=== PATIENT | male | born 1955 | race Caucasian/White ===

== ENCOUNTER 2020-09-28 12:57 | Outpatient (CLI) | payer BC, SELFPAY | END 2020-09-28 12:58 | disposition home or self-care (01) | LOC: ANHAUDIO 12:58 | PROVIDERS: PCP Family Medicine; Visit Provider Otolaryngology | DX: H93.13 Tinnitus, bilateral (principal); H91.93 Unspecified hearing loss, bilateral | CPT/HCPCS: 92557; 92567 ==

== ENCOUNTER 2020-09-29 09:54 | Outpatient (RCR) | payer BC, SELFPAY ==
--- NOTE | 2020-09-29 11:24 | PTOPEVAL ---
PHYSICAL THERAPY EVALUATION Thank you for referring [place] to [facility].? Jose was evaluated for the dx of BPPV. The patient will be called in 1 week to determine if further PT is needed. Will DC PT if pt is I with HEP and w/o symptoms.. Please review, sign, date and return this plan of care SUELLEN. I agree with and certify that the following plan of care is medically necessary. Referring Physician Date Attending Provider: Deyvi Carranza MD *PT Outpatient Evaluation Start: 09/29/20 10:07 Freq: Status: Active Protocol: Document 09/29/20 10:15 MLV (Rec: 09/29/20 11:09 [facility] [id number]) Therapy Assessment Status Assessment Status Assessment Status Evaluation Evaluation Information Problem Diagnosis vertigo-possible BPPV Onset 4 months ago Cause none Additional Evaluation Detail The patient reports having a start of tinnitis in May this year that remains. The patient then had a severe bout of dizziness that began in the middle of the night w/o movement provocation. This began in August and has decreased over time now to a point where he is currently asymptomatic. The patient wants to assure no remaining symptoms and hopes to prevent recurring events. Diagnostic Tests Other Tests For This Problem Yes: hearing test; clear Pain Assessment Timing of Pain Assessment Timing of Pain Assessment Assessment Self Report Self Report Pain Level 0 Pain Score Pain Score 0: Self Report Cervical and Lumbar ROM Cervical ROM Reason Not Measured WFL/Left,WFL/Right Upper Extremity Range of Motion General Upper Extremity Range of Motion Reason Not Measured WFL/Left,WFL/Right Lower Extremity Muscle Strength Testing General Lower Extremity Strength Reason Not Measured WFL/Left,WFL/Right Upper Extremity Muscle Strength Testing General Upper Extremity Strength Reason Not Measured WFL/Left,WFL/Right Vestibular Evaluation Vestibular Testing Smooth Pursuits Normal Saccades WNL Sitting Head Thrust WNL Gaze Stabilization with Fixation WNL Gaze Stabilization without Fixation WNL Head Shake without Fixation WNL Head Shake with Fixation WNL [place]-Hallpike Left Vertigo but no Nystagmus Time Length of Nystagmus to the Left ( 10 seconds) Latony[place]-Hallpike Right WNL Horizontal Roll Test in Supine
--- NOTE | 2020-10-13 09:44 | PCPTNOTE ---
10/13/20: Called pt to check on HEP and progress. The patient reports doing his exercises for a couple days regularly, then did them sporadically due to being less symptomatic. The patient feels he does not need further PT, will continue on his own. DC PT.
--- NOTE | 2020-10-13 09:50 | PCPTNOTE ---
PHYSICAL THERAPY DISCHARGE Attending Provider: Deyvi Carranza MD Patient:[place] Date of :1955 Patient has not returned for any further treatments since 09/29/2020, therefore he will be discharged at this time. Patient?s initial visit was on 09/29/2020 10:00 and he had a total of 1 visit. Jose feels he has what he needs to work on his own and has no further skilled PT needs-per phone conversation on 10/13/20. The goals have been met. Thank you for referring this patient to [facility]. Please review, sign, date and return this discharge summary SUELLEN. I have been updated about the patient's current status and I agree with discharge from the above service at this time. Referring Physician Date
== END 2020-10-20 15:32 | disposition home or self-care (01) ==
LOC: ANHPT 09:54
PROVIDERS: PCP Family Medicine; Visit Provider Otolaryngology
DX: H81.10 Benign paroxysmal vertigo, unspecified ear (principal); H81.20 Vestibular neuronitis, unspecified ear
CPT/HCPCS: 97110; 97161

== ENCOUNTER 2021-01-25 12:29 | Outpatient (CLI) | payer BC, SELFPAY ==
--- NOTE | ~2021-01-25 | DEXA_ITS ---
Bone Density Report Name: [place] Age: 65 Sex: Male Ethnicity: White Date of : 1955 Indication: osteopenia; monitoring treatment; prior fracture; postmenopausal Referring Provider: JEAN POE Study: Bone densitometry was performed. Exam Date: January 25, 2021 Accession number: [id number] Bone Density: Region BMD T-score Z-score Classification AP Spine (L1-L4) 0.997 -0.9 -0.1 Normal Femoral Neck (Left) 0.719 -1.5 -0.5 Osteopenia Total Hip (Left) 0.915 -0.8 -0.3 Normal World Health Organization criteria for BMD impression classify patients as: Normal (T-score at or above -1.0), Osteopenia (T-score between -1.0 and -2.5), or Osteoporosis (T-score at or below -2.5). 10-year Fracture Risk: FRAX not reported because: Prior hip or vertebral fracture Treated for osteoporosis Previous Exams: Region Exam Age BMD T-score BMD Change BMD Change Date g/cm2 vs Baseline vs Previous AP Spine(L1-L4) 01/25/2021 65 0.997 -0.9 0.029(3.0%)# 0.069(7.5%)* 10/27/2013 58 0.927 -1.5 -0.040(-4.2%)# 0.024(2.7%)# 10/23/2011 56 0.903 -1.7 -0.065(-6.7%)# -0.065(-6.7%)# 10/19/2009 54 0.968 -1.1 Total Hip(Left) 01/25/2021 65 0.915 -0.8 0.076(9.1%)# 0.035(4.0%)* 10/27/2013 58 0.880 -1.0 0.041(4.8%)# 0.020(2.4%)# 10/23/2011 56 0.860 -1.1 0.020(2.4%)# 0.020(2.4%)# 10/19/2009 54 0.839 -1.3 *Denotes significance at 95% confidence level, LSC for AP Spine = 0.022 g/cm2, LSC for Total Hip = 0.027 g/cm2 Clinical Information Provided by Patient: Have had a previous hip or vertebral fracture Has had a low trauma fracture Is being treated for osteoporosis Has used the following medications: Actonel (i.e. risedronate), Fosamax (i.e. alendronate), Vitamin D, Calcium Patient maximum height was 71.5 No regular weight bearing exercise Does not regularly consume dairy products Drinks caffeinated beverages Impression: The patient has low bone mass, based on the Left Femoral Neck T-score. The patient has risk factors, including: previous fracture. No significant bone loss was observed. Discussion: PATIENT UNDER TREATMENT WITH NO SIGNIFICANT BMD LOSS SINCE LAST EXAM. In an untreated patient, BMD typically declines with age. A lack of decline or gain is usually a sign that treatment is efficacious and fracture risk is reduced. It is important to ask patients whether they are taking their medications and to encourage continued and appropriate compliance with their osteoporosis therapies to reduce fracture risk.
== END 2021-01-25 12:30 | disposition home or self-care (01) ==
LOC: ANHIMG 12:32
PROVIDERS: PCP Family Medicine; Visit Provider Family Medicine
DX: M81.0 Age-related osteoporosis without current pathological fracture (principal); M85.852 Other specified disorders of bone density and structure, left thigh
CPT/HCPCS: 77080

== ENCOUNTER → 2021-11-01 16:14 | Outpatient (CLI) | payer MEDICARE, SELFPAY ==
--- NOTE | ~2021-11-01 | XR_ITS ---
EXAMINATION: XR chest 2V 11/01/2021 16:44 INDICATION: Bronchitis with bronchospasm PROCEDURE: 2 view chest COMPARISON: 02/06/2008 FINDINGS: The lungs are clear. The cardiomediastinal silhouette is within normal limits. There are no pleural effusions. There is no pneumothorax suspected. The lungs are hyperinflated which is cons istent with, but not diagnostic of chronic obstructive pulmonary disease. IMPRESSION: 1: NO ACUTE CARDIOPULMONARY DISEASE. Reviewed, dictated and finalized at location A.
== END ==
PROVIDERS: PCP Family Medicine; Visit Provider Physician Assistant
DX: J20.9 Acute bronchitis, unspecified (principal)
CPT/HCPCS: 71046

== ENCOUNTER 2023-04-15 08:46 | Emergency (ER) | payer MEDICARE, SELFPAY ==
--- NOTE | ~2023-04-15 | CT_ITS ---
EXAMINATION: CTA chest PE protocol DATE: 04/15/2023 10:08 INDICATION: Tachycardia and shortness of breath, COVID 19 positive TECHNIQUE: Computed tomography angiography (CTA) of the chest was performed with 100 mL Omnipaque-350 intravenous contrast timed to evaluate the pulmonary arteries. Coronal maximum intensity projection 3D-reconstructions were created by the technologist. The dose-length product (DLP) was 731.59 mGy-cm. Automated exposure control and iterative reconstruction technique were employed. COMPARISON: None. FINDINGS: There are pulmonary emboli in all lobes of the lungs, at the origins of the right upper, mi ddle, and lower lobe pulmonary arteries, and origin of the left upper lobe pulmonary artery, and and left main pulmonary artery. There is straightening of the interventricular septum. There are patchy l eft perihilar airspace opacities. No pleural effusion or pneumothorax. No pathologically enlarged tho racic lymph nodes are identified. The heart size is normal. There is moderate thoracic spondylosis. IMPRESSION: 1. Bilateral central pulmonary emboli with possible right heart strain. These findings were discussed with Dr. Amish Mistry MD in the Emergency Department at 1041 hours on 04/15/2023. 2. Patchy left perihilar airspace opacities, likely pneumonia. Reviewed, dictated and finalized at location F. SUPERVISOR IMPRESSION: 1. Bilateral central pulmonary emboli with possible right heart strain. These f indings were discussed with Dr. Amish Mistry MD in the Emergency Departmen t at 1041 hours on 04/15/2023. 2. Patchy left perihilar airspace opacities, likely pneumonia.
[2023-04-15 08:52] VITALS: BP 132/105; PULSE 126; RESP 23; TEMP 36.3; O2SAT 100
[2023-04-15 08:58] VITALS: PULSE 125
--- NOTE | 2023-04-15 08:58 | ECG_ITS ---
Measurements Intervals [place] Rate: 124 P: 31 MN: 161 QRS: 35 QRSD: 94 T: 48 QT: 410 QTc: 589 Interpretive Statements SINUS TACHYCARDIA WITH VENTRICULAR PREMATURE COMPLEXES ANTERIOR MYOCARDIAL INFARCTION , AGE INDETERMINATE POSSIBLE INFERIOR MYOCARDIAL INFARCTION , PROBABLY OLD Electronically Signed On 04-15-2023 11:41:26 WATER QUALITY ANALYST by Esdras Ram M.D.
--- NOTE | 2023-04-15 08:59 | ED.GENADULT ---
HPI - General Adult General Chief complaint: Shortness of Breath/Dyspnea Stated complaint: shortness of breath Time Seen by Provider: 04/15/23 08:49 History of Present Illness HPI narrative: 67-year-old male with history of hypertension high cholesterol. Patient began developing COVID symptoms on the was diagnosed with COVID on the and patient just completed his paxlovid. Patient states he began developing some shortness of breath last night and had a heart rate up to 115 at home. Patient denies any prior history of [place] CVA PE DVT. Patient denies any associated chest pain with this. Related Data Home Medications Medication Instructions Recorded Confirmed atorvastatin 20 mg tablet 20 mg PO DAILY 09/08/20 11/23/22 sertraline 50 mg tablet 50 mg PO DAILY 09/08/20 11/23/22 irbesartan 300 1 tablet PO DAILY 05/25/22 11/23/22 mg-hydrochlorothiazide 12.5 mg tablet psyllium husk 2.6 gram/4.1 gram 2 tbsp PO DAILY 11/23/22 11/23/22 oral powder Allergies Allergy/AdvReac Type Severity Reaction Status Date / Time No Known Allergies Allergy Mild Verified 04/15/23 08:56 Review of Systems Review of Systems: All systems reviewed & are unremarkable except as noted in HPI and below PMFSH Past Medical History Medical History (Updated 04/15/23 @ 14:22 by Amish Mistry MD) BPPV (benign paroxysmal positional vertigo) Essential (primary) hypertension Hearing loss, bilateral Hyperlipidemia Major depressive disorder, recurrent, 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 Family History Family History Grandparent Family history of Alzheimer's disease Mother Family history of pancreatic cancer Hypertension Sibling Family history of malignant neoplasm of urinary bladder Father Alcoholism Asthma Social History Social History Smoking status: Former smoker Tobacco type: cigarettes Second hand tobacco smoke exposure: No Alcohol intake: current Drinks per week: 3 Substance use: current Substance use type: marijuana Last use: 05/25/22 Lack of Transportation: No Lack of Food: Never True Current Housing: I Have Housing Concerned About Future Housing: No Difficulty Paying Gas/Electric Bills: No Difficulty Paying for Meds: No Currently Unemployed: No Difficulty w/ Childcare or Family Care: No Living arrangements: with family Occupation/Education: retired Gender identity (if verbalized by the patient): Male Sexual Orientation (if Verbalized by the Patient): Straight or Heterosexual Spiritual care concerns: No Exam Narrative: APPEARANCE: Well appearing, no pain, no distress, well-nourished. HEAD: normocephalic, atraumatic. EYES: PERRLA/EOMI, conjunctivae clear. NOSE: Normal no drainage EARS:TMS clear with good light reflex. THROAT: Pharynx clear, no exudate. NECK: Supple. No adenopathy, no masses. RESPIRATORY: Airway patent, respirations nonlabored. Clear to auscultation bilaterally, no rales, rhonchi, wheezing. CARDIOVASCULAR: Tachycardia ABDOMINAL: Soft, nontender, nondistended, normal bowel sounds MUSCULOSKELETAL: Moves all extremities. Strength/ROM intact, No edema, No calf tenderness. NEURO: Alert. Cranial nerves II through XII intact. Grossly SKIN: Warm, dry. Normal Color Course Course Emergency Course: 67-year-old male present to the emergency department for evaluation for shortness of breath. Patient is afebrile but does have a leukocytosis of 15.7 a stable hemoglobin of 16.4. No acute abnormalities on the patient's CMP patient's lactic acid was mildly elevated. Patient did have a bump in his troponin 2.390 with no evidence acute STEMI on the patient's EKG. Patient did test positive for COVID was negative for influenza a and RSV. CT scan was ordered to evaluate for pulmonary embolism and this did show multiple bilateral pulmonar
[2023-04-15] MEDS: SODIUM CHLORIDE 0.9% IV 1,000 ML 999 ML IV CONT (09:07)
[2023-04-15 09:15] LABS: Basophils Absolute Auto 0.1 K/mm3 (0.0-0.1); Basophils Percent Auto 0.5 % (0.2-1.2); Eosinophils Absolute Auto 0.2 K/mm3 (0-0.3); Eosinophils Percent Auto 1.1 % (0-4.4); Hematocrit 51.6 % (42.0-52.0); Hemoglobin 16.4 g/dL (14.0-18.0); Immature Granulocyte Absolute 0.06 K/mm3 (0.00-0.031); Immature Granulocyte Percent A 0.4 % (0-0.5); Lymphocytes Absolute Auto 2.89 K/mm3 (0.9-3.2); Lymphocytes Percent Auto 18.5 % (18.3-44.2); Mean Corpuscular HGB Conc 31.8 g/dl (32-36); Mean Corpuscular Hemoglobin 28.7 pg (26-34); Mean Corpuscular Volume 90.4 fl (80-100); Mean Platelet Volume 9.5 fl (7.4-10.4); Monocytes Absolute Auto 1.4 K/mm3 (0.1-0.6); Neutrophils Absolute Auto 11.1 K/mm3 (1.3-6.7); Neutrophils Percent Auto 70.5 % (45.5-73.1); Platelet Count Result 248 k/mm3 (150-375); Red Blood Count 5.71 M/mm3 (4.6-6.20); Red Cell Distribution Width 12.9 % (11.5-14.5); White Blood Count 15.7 K/mm3 (4.5-10.0)
[2023-04-15 09:27] LABS: Partial Thromboplastin Time 30.8 SECONDS (22.3-36.8)
[2023-04-15 09:30] LABS: Alanine Aminotransferase 21 U/L (6-50); Albumin Level 4.6 g/dL (3.5-5.1); Alkaline Phosphatase 116 U/L (38-126); Anion Gap 9 mmol/L (8-16); Aspartate Amino Transferase 28 U/L (17-59); Blood Urea Nitrogen 14 mg/dL (9-20); Calcium 10.6 mg/dL (8.4-10.2); Carbon Dioxide 27 mmol/L (22-30); Chloride 102 mmol/L (98-107); Estimated CRCL calculation 72 ml/min; Estimated Glomerular Filt Rate > 60; Glucose 133 mg/dL (65-110); Lactic Acid Reflex 2.2 mmol/L (0.7-2.0); Sodium 138 mmol/L (137-145)
[2023-04-15 09:41] LABS: Magnesium 2.2 mg/dL (1.6-2.3)
--- NOTE | 2023-04-15 09:54 | ECG_ITS ---
Measurements Intervals [place] Rate: 118 P: 28 PA: 173 QRS: 21 QRSD: 86 T: 37 QT: 435 QTc: 610 Interpretive Statements SINUS TACHYCARDIA LOW QRS VOLTAGE IN PRECORDIAL LEADS POSSIBLE ANTERIOR MYOCARDIAL INFARCTION , OF INDETERMINATE AGE Electronically Signed On 04-15-2023 11:41:52 POTATO SEED CUTTER by Esdras Ram M.D.
[2023-04-15 10:30] LABS: Influenza A QL RT-PCR Negative (Negative); Influenza B QL RT-PCR Negative (Negative); RSV RNA, RT-PCR Negative (Negative); SARS-CoV-2 RNA PCR Positive (Negative)
[2023-04-15 11:07] LABS: Add Urine Microscopic? NO; Appearance Urine Clear (Clear); Bilirubin Urine Negative (Negative); Blood Urine Negative (Negative); Color Urine Yellow (Yellow); Glucose Urine UA Negative (Negative); Ketones Urine Negative (Negative); Leukocyte Esterase Ur Negative LEU/UL (Negative); Nitrate Urine Negative (Negative); Protein Urine Negative (Negative); Specific Grav Ur 1.062 (1.001-1.035); Urobilinogen Urine 0.2 mg/dL (<2.0); pH Urine 7.5 (5.0-9.0)
[2023-04-15] MEDS: HEPARIN SOD/D5W 100 UNITS/ML 25,000 UNITS/250 ML BAG 15 UNITS IV CONT (11:12)
[2023-04-15] MEDS: HEPARIN SODIUM 5,000 UNITS/ML VIAL 7000 UNITS IV PUSH (11:12)
[2023-04-15 11:16] VITALS: BP 119/95; PULSE 115; RESP 16; O2SAT 99
[2023-04-15 11:17] VITALS: O2SAT 99
[2023-04-15 11:50] VITALS: BP 112/81; PULSE 117; RESP 18; O2SAT 98
[2023-04-15 12:13] LABS: Reflex Lactic Acid Yes or No Add Lactic
== END 2023-04-15 13:00 | disposition short-term general hospital (02) ==
LOC: ANHED 09:17
PROVIDERS: Emergency Provider Emergency Medicine; PCP Family Medicine
DX: I26.99 Other pulmonary embolism without acute cor pulmonale (principal); I10 Essential (primary) hypertension; E78.5 Hyperlipidemia, unspecified; Z87.891 Personal history of nicotine dependence; Z20.822 Contact with and (suspected) exposure to COVID-19
CPT/HCPCS: 36415; 71275; 80053; 81003; 83605; 83735; 84484; 85025; 85610; 85730; 87637; 93005; 96361; 96365; 96366; 99291; J1644; J7030; Q9967

== ENCOUNTER 2023-06-11 11:16 | Emergency (ER) | payer MEDICARE, SELFPAY ==
--- NOTE | ~2023-06-11 | XR_ITS ---
EXAMINATION: XR chest 2V DATE: 06/11/2023 12:14 INDICATION: Chest pressure. Shortness of breath. TECHNIQUE: Frontal and lateral views of the chest were obtained. COMPARISON: None. FINDINGS: There is mild atelectasis at left lung base. No pleural effusion or pneumothorax. The heart size is normal. There is mild chronic anterior wedging of multiple thoracic vertebral bodies. IMPRESSION: 1. Mild atelectasis at left lung base. Reviewed, dictated and finalized at location A.
--- NOTE | 2023-06-11 11:17 | ECG_ITS ---
Measurements Intervals [place] Rate: 70 P: 26 [place]: 174 QRS: 23 QRSD: 94 T: 39 QT: 395 QTc: 427 Interpretive Statements SINUS RHYTHM WITH OCCASIONAL ECTOPIC PREMATURE COMPLEXES OTHERWISE UNREMARKABLE ECG COMPARED TO ECG 04/15/2023 10:11:56 PATIENT IS NO LONGER TACHYCARDIC Electronically Signed On 06-11-2023 13:14:59 CDT by Reji Worley M.D.
[2023-06-11 11:29] VITALS: BP 119/74; PULSE 63; RESP 18; TEMP 36.5; O2SAT 98
[2023-06-11 12:01] LABS: Basophils Absolute Auto 0.1 K/mm3 (0.0-0.1); Basophils Percent Auto 0.9 % (0.2-1.2); Eosinophils Absolute Auto 0.2 K/mm3 (0-0.3); Eosinophils Percent Auto 3.4 % (0-4.4); Hemoglobin 13.4 g/dL (14.0-18.0); Immature Granulocyte Absolute 0.02 K/mm3 (0.00-0.031); Immature Granulocyte Percent A 0.3 % (0-0.5); Lymphocytes Absolute Auto 1.85 K/mm3 (0.9-3.2); Lymphocytes Percent Auto 28.5 % (18.3-44.2); Mean Corpuscular HGB Conc 32.7 g/dl (32-36); Mean Corpuscular Hemoglobin 29.8 pg (26-34); Mean Corpuscular Volume 91.1 fl (80-100); Mean Platelet Volume 9.6 fl (7.4-10.4); Monocytes Absolute Auto 0.5 K/mm3 (0.1-0.6); Monocytes Percent Auto 7.3 % (2.6-8.5); Neutrophils Absolute Auto 3.9 K/mm3 (1.3-6.7); Neutrophils Percent Auto 59.6 % (45.5-73.1); Platelet Count Result 294 k/mm3 (150-375); Red Cell Distribution Width 13.2 % (11.5-14.5); White Blood Count 6.5 K/mm3 (4.5-10.0)
[2023-06-11 12:11] LABS: INR 1.1; Prothrombin Time 14.6 Seconds (11.1-14.7)
[2023-06-11 12:12] LABS: Alanine Aminotransferase 16 U/L (6-50); Albumin Level 4.2 g/dL (3.5-5.1); Alkaline Phosphatase 78 U/L (38-126); Anion Gap 5 mmol/L (4-12); Aspartate Amino Transferase 24 U/L (17-59); Bilirubin,Total 1.2 mg/dL (0.2-1.3); Blood Urea Nitrogen 15 mg/dL (9-20); Calcium 9.4 mg/dL (8.4-10.2); Carbon Dioxide 28 mmol/L (22-30); Chloride 105 mmol/L (98-107); Estimated CRCL calculation 77 ml/min; Estimated Glomerular Filt Rate > 60; Glucose 106 mg/dL (65-110); Lipase 40 U/L (23-300); Partial Thromboplastin Time 31.9 Seconds (22.3-36.8); Potassium 3.7 mmol/L (3.4-5.0); Sodium 138 mmol/L (137-145)
[2023-06-11 12:15] LABS: D Dimer 0.28 ug/mL (<0.48)
[2023-06-11 12:23] LABS: Troponin I 0.021 ng/mL (0.000-0.034)
[2023-06-11 13:44] VITALS: BP 112/79; PULSE 52; RESP 12; O2SAT 100; O2SAT 99
[2023-06-11 13:46] VITALS: BP 112/79; PULSE 62; RESP 14; O2SAT 98
[2023-06-11 14:16] VITALS: BP 117/79; PULSE 58; RESP 14; O2SAT 97
--- NOTE | 2023-06-11 14:47 | ECG_ITS ---
Measurements Intervals [place] Rate: 48 P: 28 [place]: 179 QRS: 24 QRSD: 109 T: 32 QT: 457 QTc: 411 Interpretive Statements SINUS BRADYCARDIA COMPARED TO ECG 06/11/2023 11:39:37 SINUS BRADYCARDIA NOW PRESENT Electronically Signed On 06-12-2023 8:44:09 CDT by Daina Decker M.D.
[2023-06-11 15:11] LABS: Troponin I 0.019 ng/mL (0.000-0.034)
[2023-06-11 15:16] VITALS: BP 122/73; PULSE 60; RESP 15; O2SAT 99
--- NOTE | 2023-06-11 15:58 | PC.NURSE ---
Pt reports having zero pain now. made aware.
--- NOTE | 2023-06-11 16:04 | ED.CHESTPAIN ---
HPI - Chest Pain General Chief Complaint: Chest Pain Stated Complaint: chest pain Time Seen by Provider: 06/11/23 15:18 Source: patient Mode of arrival: ambulatory Limitations: no limitations History of Present Illness HPI narrative: 68-year-old with a history of hypertension, hyperlipidemia, PE on Eliquis here with a complaint of chest tightness this morning. Patient stated he felt a chest was tight. He denies any shortness of breath, nausea vomiting or diaphoresis. No previous history of CAD. Patient states that he had stress test done several years ago. With the given history of PUD was worried about his chest pain. Upon arrival to the ER patient stated he was feeling fine has no further episodes of chest pain . MD complaint: chest pain Pertinent past history: other (PE) Onset (ago): hour(s) (5) Timing of current episode: now resolved Prior episodes: No Onset: during rest Pain location: parasternal Pain radiation: none Severity: moderate Quality: tightness Relieving factors: nothing Exacerbating factors: nothing Treatment prior to arrival: none Risk Factors Coronary artery disease risk factors: hypertension Thoracic aortic dissection risk factors: none Pulmonary embolism risk factors: history of pulmonary embolism (on Eliquis) Related Data Home Medications Medication Instructions Recorded Confirmed atorvastatin 20 mg tablet 20 mg PO DAILY 09/08/20 05/24/23 sertraline 50 mg tablet 50 mg PO DAILY 09/08/20 05/24/23 irbesartan 300 1 tablet PO DAILY 05/25/22 05/24/23 mg-hydrochlorothiazide 12.5 mg tablet psyllium husk 2.6 gram/4.1 gram 2 tbsp PO DAILY 11/23/22 05/24/23 oral powder Allergies Allergy/AdvReac Type Severity Reaction Status Date / Time No Known Allergies Allergy Mild Verified 04/26/23 10:16 Review of Systems Review of Systems: All systems reviewed & are unremarkable except as noted in HPI and below Constitutional: Constitutional: Reports no additional constitutional complaints Eyes: Eyes: Reports no additional eye complaints ENT: Reports system reviewed and no additional complaints, except as documented Cardiovascular: Cardiovascular: Reports as per HPI Respiratory: Respiratory: Reports no additional respiratory complaints Gastrointestinal: Gastrointestinal: Reports no additional gastrointestinal complaints Musculoskeletal: Musculoskeletal: Reports no additional musculoskeletal complaints Neurologic: Reports system reviewed and no additional complaints, except as documented Psychiatric: Psychiatric: Reports no additional psychiatric complaints [facility] Past Medical History Medical History BPPV (benign paroxysmal positional vertigo) Essential (primary) hypertension Hearing loss, bilateral Hyperlipidemia Major depressive disorder, recurrent, 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 Family History Family History Grandparent Family history of Alzheimer's disease Mother Family history of pancreatic cancer Hypertension Sibling Family history of malignant neoplasm of urinary bladder Father Alcoholism Asthma Social History Social History Smoking status: Former smoker Tobacco type: cigarettes Second hand tobacco smoke exposure: No Alcohol intake: current Drinks per week: 3 Substance use: current Substance use type: marijuana Last use: 05/25/22 Lack of Transportation: No Lack of Food: Never True Current Housing: I Have Housing Concerned About Future Housing: No Difficulty Paying Gas/Electric Bills: No Difficulty Paying for Meds: No Currently Unemployed: No Difficulty w/ Childcare or Family Care: No Living arrangements: with family Occupation/Education: retired Gender identity (if verbalized by the patient): Male Sexual Orientation (if Verbalized by the Patient):
[2023-06-11 16:20] VITALS: BP 116/87; PULSE 62; RESP 16; O2SAT 97
== END 2023-06-11 16:49 | disposition home or self-care (01) ==
PROVIDERS: Emergency Medicine; Emergency Provider Family Medicine; PCP Family Medicine
DX: R07.89 Other chest pain (principal); I10 Essential (primary) hypertension; E78.5 Hyperlipidemia, unspecified; F33.41 Major depressive disorder, recurrent, in partial remission; Z86.711 Personal history of pulmonary embolism; Z87.11 Personal history of peptic ulcer disease; Z87.891 Personal history of nicotine dependence; Z79.01 Long term (current) use of anticoagulants; I49.49 Other premature depolarization; R00.1 Bradycardia, unspecified
CPT/HCPCS: 36415; 71046; 80053; 83690; 84484; 85025; 85380; 85610; 85730; 93005; 99284

== ENCOUNTER 2024-01-31 06:05 | Day surgery (SDC) | payer MEDICARE, SELFPAY ==
[2023-11-13 11:55] VITALS: BMI 31.9
[2024-01-14 11:57] VITALS: BMI 31.9
[2024-01-31 06:48] VITALS: BP 124/94; PULSE 78; RESP 18; TEMP 37.3; O2SAT 96
[2024-01-31] MEDS: LACTATED RINGERS 1,000 ML 150 ML IV CONT (06:51)
--- NOTE | 2024-01-31 07:04 | P.PNAN_ITS ---
Anes - Initial Pre Proc Eval Procedure: Operation Date: 01/31/24 08:00 Proposed Procedures p Screening Colonoscopy - Azael Pina MD Date/Time: 01/31/24 07:04 Surgeon: Azael Pina MD Pre Op Diagnosis: Neoplasm Screening Patient Data Age: 68 Gender: M Height: 1.8 m Weight: 104.7 kg Last Vital Signs Temp 37.3 C 01/31/24 06:48 Pulse 78 01/31/24 06:48 Resp 18 01/31/24 06:48 BP 124/94 H 01/31/24 06:48 Pulse Ox 96 01/31/24 06:48 O2 Del Method Room Air 01/31/24 06:48 Allergies Allergy/AdvReac Type Severity Reaction Status Date / Time No Known Allergies Allergy Mild Verified 01/31/24 06:47 Home Medications Medication Instructions Recorded Confirmed Type psyllium husk 2.6 gram/4.1 gram 2 tbsp PO DAILY 11/23/22 01/31/24 History oral powder irbesartan 300 1 tablet PO DAILY #90 tabs 12/24/23 01/31/24 Rx mg-hydrochlorothiazide 12.5 mg tablet sertraline 50 mg tablet 50 mg PO DAILY #90 tabs 01/13/24 01/31/24 Rx atorvastatin 20 mg tablet 20 mg PO HS 01/14/24 01/31/24 History alprazolam 1 mg tablet 1 mg PO DAILY PRN anxiety #10 tabs 01/17/24 01/31/24 Rx Patient hx anesthesia problems: none Family hx anesthesia problems: none Results Review: All pre-operative results and documents have been reviewed as part of the pre- operative evaluation. [facility] Past Medical History Medical History BPPV (benign paroxysmal positional vertigo) Essential (primary) hypertension Hearing loss, bilateral Hyperlipidemia Major depressive disorder, recurrent, in partial remission Personal history of pulmonary embolism Subjective tinnitus of both ears Surgical History Surgical History (Updated 01/31/24 @ 07:06 by Maximo Sinha MD) History of hip surgery Family History Family History Grandparent Family history of Alzheimer's disease Mother Family history of pancreatic cancer Hypertension Sibling Family history of malignant neoplasm of urinary bladder Father Alcoholism Asthma Social History Social History Smoking packs per day: 2 Smoking cigarettes per day: 40.0 Years smoked: 20 Smoking pack-years: 40.00 Smoking status: Former smoker Tobacco type: cigarettes Second hand tobacco smoke exposure: No Smoking end date: 03/12/94 Alcohol intake: current Drinks per week: 3 Alcohol use details: 2 Substance use: current Substance use type: marijuana Other substance usage details: EDIBLES, 3X A WEEK Last use: 05/25/22 Do You Feel Safe in your Home?: Yes Lack of Transportation: No Lack of Food: Never True Current Housing: I Have Housing Concerned About Future Housing: No Difficulty Paying Gas/Electric Bills: No Difficulty Paying for Meds: No Currently Unemployed: No Difficulty w/ Childcare or Family Care: No Living arrangements: with family Occupation/Education: retired Gender identity (if verbalized by the patient): Male Sexual Orientation (if Verbalized by the Patient): Straight or Heterosexual Spiritual care concerns: No Anes - Eval Final PreProcedure Day of Procedure 01/31/24 07:04 Patient weight: obese Heart: regular rate and rhythm Lungs: clear to auscultation Airway: Mallampati scale class II Neurological: alert and oriented Last oral intake: >/= 8 hours ASA classification: III Emergent: no Anesthetic plan: proceed Anesthesia type and monitoring: general GIVS and standard monitoring Results Review: All pre-operative results and documents have been reviewed as part of the pre- operative evaluation. Informed Consent: The patient's anesthetic plan and its attendant risks and benefits were discussed with the patient/family/POA. Questions were solicited and answers provided to the satisfaction of the patient/family/POA.
--- NOTE | 2024-01-31 07:08 | PM.HPGS ---
History of Present Illness History of Present Illness Consent: Risks, benefits, and alternatives have been discussed and questions answered. Patient agrees to proceed with procedure. Chief complaint: Neoplasm Screening Narrative: [place] is a 68 year old male presents for screening colonoscopy. Patient's current weight appetite and bowel habits are normal. Patient denies abdominal pain. He has had no bleeding. Previous colonoscopy 10 years ago was unremarkable. Family history noncontributory. [facility] Past Medical History Medical History (Updated 01/31/24 @ 07:09 by Azael Pina MD) BPPV (benign paroxysmal positional vertigo) Essential (primary) hypertension Hearing loss, bilateral Hyperlipidemia Major depressive disorder, recurrent, in partial remission Personal history of pulmonary embolism Subjective tinnitus of both ears Surgical History Surgical History (Updated 01/31/24 @ 07:06 by Maximo Sinha MD) History of hip surgery Family History Family History Grandparent Family history of Alzheimer's disease Mother Family history of pancreatic cancer Hypertension Sibling Family history of malignant neoplasm of urinary bladder Father Alcoholism Asthma Social History Social History Smoking packs per day: 2 Smoking cigarettes per day: 40.0 Years smoked: 20 Smoking pack-years: 40.00 Smoking status: Former smoker Tobacco type: cigarettes Second hand tobacco smoke exposure: No Smoking end date: 03/12/94 Alcohol intake: current Drinks per week: 3 Alcohol use details: 2 Substance use: current Substance use type: marijuana Other substance usage details: EDIBLES, 3X A WEEK Last use: 05/25/22 Do You Feel Safe in your Home?: Yes Lack of Transportation: No Lack of Food: Never True Current Housing: I Have Housing Concerned About Future Housing: No Difficulty Paying Gas/Electric Bills: No Difficulty Paying for Meds: No Currently Unemployed: No Difficulty w/ Childcare or Family Care: No Living arrangements: with family Occupation/Education: retired Gender identity (if verbalized by the patient): Male Sexual Orientation (if Verbalized by the Patient): Straight or Heterosexual Spiritual care concerns: No Meds Home Medications and Allergies Home Medications Medication Instructions Recorded Confirmed Type psyllium husk 2.6 gram/4.1 gram 2 tbsp PO DAILY 11/23/22 01/31/24 History oral powder irbesartan 300 1 tablet PO DAILY #90 tabs 12/24/23 01/31/24 Rx mg-hydrochlorothiazide 12.5 mg tablet sertraline 50 mg tablet 50 mg PO DAILY #90 tabs 01/13/24 01/31/24 Rx atorvastatin 20 mg tablet 20 mg PO HS 01/14/24 01/31/24 History alprazolam 1 mg tablet 1 mg PO DAILY PRN anxiety #10 tabs 01/17/24 01/31/24 Rx Allergies Allergy/AdvReac Type Severity Reaction Status Date / Time No Known Allergies Allergy Mild Verified 01/31/24 06:47 Vital Signs Vital Signs - 24 hr 01/31/24 06:48 Temperature 99.1 F Pulse Rate 78 Respiratory Rate 18 Blood Pressure 124/94 H Pulse Oximetry 96 Oxygen Delivery Room Air Assessment and Plan Assessment and plan (1) Screen for colon cancer: Code(s): Z12.11 - Encounter for screening for malignant neoplasm of colon Status: Acute Assessment and Plan: Patient presents today for screening colonoscopy. Previous exam 10 years ago was unremarkable. Further recommendations may be given after endoscopy
[2024-01-31 08:06] VITALS: BP 118/82; PULSE 60; RESP 16; O2SAT 97
[2024-01-31 08:16] VITALS: BP 114/80; PULSE 61; RESP 16; O2SAT 98
[2024-01-31 08:26] VITALS: BP 131/94; PULSE 63; RESP 18; O2SAT 98
--- NOTE | 2024-01-31 08:35 | WPDANESPN ---
Anes - Prog Note Post-Op Date/Time: 01/31/24 08:35 Cardiovascular status: normal Respiratory status: normal Airway patency: baseline Mental status: baseline Post-Op hydration status: normal Vital Signs: Last Vital Signs Temp 37.3 C 01/31/24 06:48 Pulse 63 01/31/24 08:26 Resp 18 01/31/24 08:26 BP 131/94 H 01/31/24 08:26 Pulse Ox 98 01/31/24 08:26 O2 Del Method Room Air 01/31/24 08:26 Pain Score (VAS): 0/10 I/O: Intake & Output 01/30/24 01/31/24 01/31/24 23:59 07:59 15:59 Intake Total 350 Balance 350 Patient Feedback: Patient satisfied with anesthetic care.
== END 2024-01-31 08:31 | disposition home or self-care (01) ==
PROVIDERS: PCP Family Medicine; Visit Provider Internal Medicine Gastroenterology
PROC: 0DJD8ZZ Inspection of Lower Intestinal Tract, Via Natural or Artificial Opening Endoscopic (ICD-10-PCS; CPT 45378; principal; 2024-01-31 08:00)
DX: Z12.11 Encounter for screening for malignant neoplasm of colon (principal); K64.8 Other hemorrhoids
CPT/HCPCS: G0121

== ENCOUNTER 2024-03-14 10:03 | Emergency (ER) | payer MEDICARE, SELFPAY ==
[2024-03-14] VITALS (8 sets, daily range): BP systolic 138–151; BP diastolic 86–93; PULSE 63–71; RESP 7–20; TEMP 36.3–36.7; O2SAT 97–100
--- NOTE | ~2024-03-14 | XR_ITS ---
EXAMINATION: XR chest 2V DATE: 03/14/2024 10:51 INDICATION: Left chest pain. Cough. TECHNIQUE: Frontal and lateral views of the chest were obtained. COMPARISON: Chest 2 views 06/11/2023, chest CT 04/15/2023 FINDINGS: Calcified bilateral lung nodules are consistent with old granulomatous disease. There is no pneumonia, pleural effusion, or pneumothorax. The heart size is normal. There is mild chronic anteri or wedging of multiple vertebral bodies. IMPRESSION: 1. No acute cardiopulmonary disease. Reviewed, dictated and finalized at location A. S CENTER MANAGER
--- NOTE | ~2024-03-14 | CT_ITS ---
EXAMINATION: CTA chest PE protocol DATE: 03/14/2024 14:41 INDICATION: Left upper chest pain TECHNIQUE: Computed tomography (CT) pulmonary angiogram of the chest was performed with 100 mL Omnipa que-350 intravenous contrast. Additional 3D reconstructions utilizing coronal maximum intensity proje ction (MIP) were performed. Automated exposure control and iterative reconstruction technique were em ployed. The dose-length product was 841.46 mGy-cm. COMPARISON: 04/15/2023 FINDINGS: No pulmonary embolism. There are several scattered small bilateral calcified pulmonary nodules consis tent with old granulomatous disease. Mild discoid atelectasis at the lingula. No pneumonia, pulmonary edema, pleural effusion or pneumothorax. Heart size is normal. No pericardial effusion. Atherosclero tic coronary artery calcifications. No pericardial effusion. Thoracic aorta is normal in caliber with no dissection. No pathologically enlarged thoracic lymphadenopathy. And visualized upper abdomen is unremarkable. Moderate to severe thoracic spondylosis with multiple Schmorl's nodes and minimal to mi ld chronic anterior wedging of a few mid thoracic vertebral bodies. IMPRESSION: 1. No pulmonary embolism or other acute cardiopulmonary disease. Reviewed, dictated and finalized at location B. H HAND
--- NOTE | 2024-03-14 10:04 | ECG_ITS ---
Test Date: 2024-03-14 10:13:09 Measurements Intervals [place] Rate: 87 P: 0 MO: 0 QRS: -12 QRSD: 140 T: 154 QT: 407 QTc: 491 Interpretive Statements ATRIAL FIBRILLATION LEFT BUNDLE BRANCH BLOCK [120+ ms QRS DURATION, 80+ ms Q/S IN V1/V2, 85+ ms R IN I/aVL/V5/V6] No previous ECG available for comparison Electronically Signed On 03-17-2024 15:02:17 LIBRARY SCIENCE INSTRUCTOR by Mitch Ramires M.D.
[2024-03-14 10:27] LABS: Basophils Absolute Auto 0.1 K/mm3 (0.0-0.1); Basophils Percent Auto 0.9 % (0.2-1.2); Eosinophils Absolute Auto 0.3 K/mm3 (0-0.3); Eosinophils Percent Auto 3.7 % (0-4.4); Hematocrit 44.9 % (42.0-52.0); Immature Granulocyte Absolute 0.02 K/mm3 (0.00-0.031); Immature Granulocyte Percent A 0.2 % (0-0.5); Lymphocytes Absolute Auto 2.36 K/mm3 (0.9-3.2); Mean Corpuscular HGB Conc 33.4 g/dl (32-36); Mean Corpuscular Hemoglobin 29.8 pg (26-34); Mean Corpuscular Volume 89.3 fl (80-100); Mean Platelet Volume 9.2 fl (7.4-10.4); Monocytes Absolute Auto 0.6 K/mm3 (0.1-0.6); Monocytes Percent Auto 7.2 % (2.6-8.5); Neutrophils Absolute Auto 4.8 K/mm3 (1.3-6.7); Platelet Count Result 250 k/mm3 (150-375); Red Blood Count 5.03 M/mm3 (4.6-6.20); Red Cell Distribution Width 12.6 % (11.5-14.5); White Blood Count 8.2 K/mm3 (4.5-10.0)
[2024-03-14 10:39] LABS: Alanine Aminotransferase 20 U/L (6-50); Albumin Level 4.4 g/dL (3.5-5.1); Alkaline Phosphatase 79 U/L (38-126); Anion Gap 3 mmol/L (4-12); Aspartate Amino Transferase 22 U/L (17-59); Bilirubin,Total 1.1 mg/dL (0.2-1.3); Blood Urea Nitrogen 14 mg/dL (9-20); Calcium 9.6 mg/dL (8.4-10.2); Carbon Dioxide 29 mmol/L (22-30); Chloride 107 mmol/L (98-107); Estimated CRCL calculation 71 ml/min; Estimated Glomerular Filt Rate > 60; Glucose 106 mg/dL (65-110); Lipase 60 U/L (23-300); Potassium 3.9 mmol/L (3.4-5.0); Sodium 139 mmol/L (137-145)
[2024-03-14 10:45] LABS: INR 0.9
[2024-03-14 10:46] LABS: Partial Thromboplastin Time 25.9 Seconds (22.3-36.8)
[2024-03-14 10:51] LABS: Troponin I 0.012 ng/mL (0.000-0.034)
--- NOTE | 2024-03-14 13:25 | ED.CHESTPAIN ---
HPI - Chest Pain General Chief Complaint: Chest Pain <Shawanda Singh PA-C - Last Filed: 03/14/24 13:30> Stated Complaint: L sided chest pain <Shawanda Singh PA-C - Last Filed: 03/14/24 13:30> Time Seen by Provider: 03/14/24 14:24 <Shawanda Singh PA-C - Last Filed: 03/14/24 13:30> Focused HPI: 68 y/o M with a with a history of PE last year presents to the emergency department for left-sided chest pain for several weeks. Patient states he lays on his left side at night. States he has been having intermittent pain to the left chest wall near his axilla for several weeks that is intermittent. He states the pain is worse when he moves his upper body. He denies exertional symptoms, pleuritic pain, congestion or cough. He states he contacted his PCP and was advised to come to the ED. Patient states it feels more muscular than anything, however given his history PE he wanted to be checked out. He states his PE was provoked due to hypercoagulation from COVID-19. Additionally, he underwent surgery 1 week before [place] for ganglion cyst was bilateral feet. Denies swelling or pain to his legs or calves. GENERAL: Well-appearing, well-nourished, and in no acute distress. HEAD: Normocephalic, atraumatic. CHEST: Clear to auscultation. ?No respiratory distress. HEART: Regular rate and rhythm.? NEURO: ?Alert and oriented x3. Patient screened in triage and initial orders placed.? ?Additional care and disposition to be based upon?diagnostic testing and treatment. <Shawanda Singh PA-C - Last Filed: 03/14/24 13:30> History of Present Illness HPI narrative: agree with the HPI as described above <Lázaro Stauffer MD - Last Filed: 03/14/24 21:59> Related Data Home Medications: Home Medications ?Medication ?Instructions ?Recorded ?Confirmed ?Last Taken ?Type psyllium husk 2.6 gram/4.1 gram 2 tbsp PO DAILY 11/23/22 01/31/24 01/14/24 History oral powder atorvastatin 20 mg tablet 20 mg PO HS 01/14/24 01/31/24 01/13/24 History <Shawanda Singh PA-C - Last Filed: 03/14/24 13:30> Allergies/Adverse Reactions: Allergies Allergy/AdvReac Type Severity Reaction Status Date / Time No Known Allergies Allergy Mild Verified 03/14/24 14:18 <Shawanda Singh PA-C - Last Filed: 03/14/24 13:30> Review of Systems Review of Systems: as reviewed above in HPI <Lázaro Stauffer MD - Last Filed: 03/14/24 21:59> [facility] Past Medical History Medical History: Medical History Personal history of pulmonary embolism Major depressive disorder, recurrent, in partial remission Essential (primary) hypertension Hyperlipidemia BPPV (benign paroxysmal positional vertigo) Hearing loss, bilateral Subjective tinnitus of both ears <Shawanda Singh PA-C - Last Filed: 03/14/24 13:30> Surgical History Surgical History: Surgical History History of hip surgery <Shawanda Singh PA-C - Last Filed: 03/14/24 13:30> Family History Family History: Family History Grandparent Family history of Alzheimer's disease Mother Family history of pancreatic cancer Hypertension Sibling Family history of malignant neoplasm of urinary bladder Father Alcoholism Asthma <Shawanda Singh PA-C - Last Filed: 03/14/24 13:30> Social History Social History: Social History Smoking packs per day: 2 Smoking cigarettes per day: 40.0 Years smoked: 20 Smoking pack-years: 40.00 Smoking status: Former smoker Tobacco type: cigarettes Second hand tobacco smoke exposure: No Smoking end date: 03/12/94 Alcohol intake: current Drinks per week: 3 Alcohol use details: 2 Substance use: current Substance use type: marijuana Other substance usage details: EDIBLES, 3X A WEEK Last use: 05/25/22 Do You Feel Safe in your Home?: Yes Lack of Transportation: No Lack of Food: Never True Current Housing: I Have Housing Concerned About Future Housing: No Difficulty Paying Gas/Electric Bills: No Difficulty Paying for Meds: No Currently Unemployed: No Difficulty w/ Childcare or Family Care: No Living arrangements: with family Occupation/Education: retired Gender identity (if verbalized by the patient): Male Sexual Orientation (if Verbalized by the Patient): Straight or Heterosexual Spiritual care concerns: No <Shawanda Singh PA-C - Last Filed: 03/14/24 13:30> Exam Narrative: GENERAL: [Well-appearing, well-nourished, and in no acute distress.] HEAD: [Normocephalic, atraumatic.] EYES: [PERRLA and EOMI.] ENT: Nares clear, no rhinorrhea or epistaxis. Mucous membranes moist. NECK: Supple. CHEST: [Clear to auscultation. No respiratory distress.] reproducible tenderness over the anterior lateral rib cage on the left-sided ribs 3 4 and 5, knows crepitus or deformity. HEART: [Regular rate and rhythm]. No murmur heard. [Normal peripheral pulses.] ABDOMEN: [Soft, nondistended], [nontender], [No rigidity or guarding] EXTREMITIES: Normal range of motion. [No edema.] SKIN: Warm, dry, no rash. NEURO: [No focal deficits]. Alert and oriented [x3.] PSYCH: [Normal mood and affect.] <Lázaro Stauffer MD - Last Filed: 03/14/24 21:59> Course Vital Signs Vital signs: Vital Signs Temperature 36.7 C 03/14/24 10:05 Pulse Rate 70 03/14/24 10:05 Respiratory Rate 16 03/14/24 10:05 Blood Pressure 151/86 H 03/14/24 10:05 Pulse Oximetry 98 03/14/24 10:05 Temperature 36.3 C L 03/14/24 16:15 Pulse Rate 63 03/14/24 16:15 Respiratory Rate 14 03/14/24 16:15 Blood Pressure 141/87 H 03/14/24 15:54 Pulse Oximetry 99 03/14/24 16:15 Oxygen Delivery Room Air 03/14/24 14:34 <Shawanda Singh PA-C - Last Filed: 03/14/24 13:30> Vital Signs Temperature 36.7 C 03/14/24 10:05 Pulse Rate 70 03/14/24 10:05 Respiratory Rate 16 03/14/24 10:05 Blood Pressure 151/86 H 03/14/24 10:05 Pulse Oximetry 98 03/14/24 10:05 Temperature 36.3 C L 03/14/24 16:15 Pulse Rate 63 03/14/24 16:15 Respiratory Rate 14 03/14/24 16:15 Blood Pressure 141/87 H 03/14/24 15:54 Pulse Oximetry 99 03/14/24 16:15 Oxygen Delivery Room Air 03/14/24 14:34 <Lázaro Stauffer MD - Last Filed: 03/14/24 21:59> MDM - Chest Pain MDM Narrative Medical decision making narrative: 68-year-old male with complex past medical history including a PE last year that was provoked by COVID. He has completed his course of anticoagulation is presently not taking his Eliquis. he presents today with left-sided chest discomfort that he feels is musculoskeletal in nature, intermittent and worse with specific movements and with palpation of his chest wall. Called his primary care provider said he should parenchyma into the emergency department. He otherwise appears well not any acute distress, is normal vital signs aside from some stable hypertension with a blood pressure 141/87. No tachycardia, no hypoxia or fever. No tachypnea. He is resting comfortably on room air. No history of leg swelling. Patient informs that he completed anticoagulation hypercoagulable workup during his time with COVID-19 and PE and these were negative. No recent Significant surgeries. given his history a CT angiography with PE protocol was ordered as well as a chest pain workup with troponin and EKG. Electrolyte panel and CBC obtained. patient states he is otherwise comfortable and does not require any analgesia medications at this time. Workup shows no leukocytosis or anemia. Negative troponin x2. normal coagulation studies. Electrolytes within normal limits, normal renal and hepatic function panel, negative lipase. CT angiography shows no pulmonary embolism or any acute cardiopulmonary disease. Chest x-rays independent reviewed by myself and I do not appreciate any kind pneumothorax, pneumonia or cardiomegaly. Patient's initial EKG had some ectopy on its and appeared regular with potential atrial fibrillation. Patient has no history of atrial fibrillation and a repeat EKG was obtained that shows resolution of this and complete normal sinus rhythm. Patient did not have any symptoms or feeling any irregular heartbeats or palpitations. No indications for anticoagulation at this time. Remains in normal sinus rhythm on the monitor. Given his negative troponins and normal EKG on repeat with normal vital signs I believe he can be safely discharged home at this time with diagnosis of atypical chest pain musculoskeletal chest pain. Patient already has a primary care provider and stock sorter that he can follow-up with. He was given return precautions and safe for discharge at this time. <Lázaro Stauffer MD - Last Filed: 03/14/24 21:59> Medical Records Data Attestation: I reviewed the patient's medical records. <Lázaro Stauffer MD - Last Filed: 03/14/24 21:59> Lab Data Attestation: I reviewed the patient's lab results. <Lázaro Stauffer MD - Last Filed: 03/14/24 21:59> Result diagrams: 03/14/24 10:19 03/14/24 10:18 <Shawanda Singh PA-C - Last Filed: 03/14/24 13:30> Labs: Lab Results 03/14/24 03/14/24 03/14/24 Range/Units 10:18 10:19 14:15 WBC 8.2 (4.5-10.0) K/mm3 RBC 5.03 (4.6-6.20) M/mm3 Hgb 15.0 (14.0-18.0) g/dL Hct 44.9 (42.0-52.0) % MCV 89.3 (80-100) fl MCH 29.8 (26-34) pg MCHC 33.4 (32-36) g/dl RDW 12.6 (11.5-14.5) % Plt Count 250 (150-375) k/mm3 MPV 9.2 (7.4-10.4) fl Immature Gran % (Auto) 0.2 (0-0.5) % Neut % (Auto) 59.0 (45.5-73.1) % Lymph % (Auto) 29.0 (18.3-44.2) % Craig % (Auto) 7.2 (2.6-8.5) % Eos % (Auto) 3.7 (0-4.4) % Baso % (Auto) 0.9 (0.2-1.2) % Lymph # (Auto) 2.36 (0.9-3.2) K/mm3 Craig # (Auto) 0.6 (0.1-0.6) K/mm3 Eos # (Auto) 0.3 (0-0.3) K/mm3 Baso # (Auto) 0.1 (0.0-0.1) K/mm3 Abs Immat Gran (auto) 0.02 (0.00-0.031) K/mm3 Absolute Neuts (auto) 4.8 (1.3-6.7) K/mm3 Absolute Nucleated RBC 0.000 (0.0-0.012) K/mm3 Nucleated RBC % 0.0 (0.0-0.2) % PT 13.0 (11.1-14.7) Seconds INR 0.9 APTT 25.9 (22.3-36.8) Seconds Sodium 139 (137-145) mmol/L Potassium 3.9 (3.4-5.0) mmol/L Chloride 107 (98-107) mmol/L Carbon Dioxide 29 (22-30) mmol/L Anion Gap 3 L (4-12) mmol/L BUN 14 (9-20) mg/dL Creatinine 1.10 (0.7-1.3) mg/dL Estim Creat Clear Calc 71 ml/min Estimated GFR > 60 (59 - ) Glucose 106 (65-110) mg/dL Calcium 9.6 (8.4-10.2) mg/dL Total Bilirubin 1.1 (0.2-1.3) mg/dL AST 22 (17-59) U/L ALT 20 (6-50) U/L Alkaline Phosphatase 79 (38-126) U/L Troponin I 0.012 0.013 (0.000-0.034) ng/mL Total Protein 7.0 (6.3-8.2) g/dL Albumin 4.4 (3.5-5.1) g/dL Lipase 60 (23-300) U/L <Shawanda J. Singh, PA-C - Last Filed: 03/14/24 13:30> Lab Results 03/14/24 03/14/24 03/14/24 Range/Units 10:18 10:19 14:15 WBC 8.2 (4.5-10.0) K/mm3 RBC 5.03 (4.6-6.20) M/mm3 Hgb 15.0 (14.0-18.0) g/dL Hct 44.9 (42.0-52.0) % MCV 89.3 (80-100) fl MCH 29.8 (26-34) pg MCHC 33.4 (32-36) g/dl RDW 12.6 (11.5-14.5) % Plt Count 250 (150-375) k/mm3 MPV 9.2 (7.4-10.4) fl Immature Gran % (Auto) 0.2 (0-0.5) % Neut % (Auto) 59.0 (45.5-73.1) % Lymph % (Auto) 29.0 (18.3-44.2) % Craig % (Auto) 7.2 (2.6-8.5) % Eos % (Auto) 3.7 (0-4.4) % Baso % (Auto) 0.9 (0.2-1.2) % Lymph # (Auto) 2.36 (0.9-3.2) K/mm3 Craig # (Auto) 0.6 (0.1-0.6) K/mm3 Eos # (Auto) 0.3 (0-0.3) K/mm3 Baso # (Auto) 0.1 (0.0-0.1) K/mm3 Abs Immat Gran (auto) 0.02 (0.00-0.031) K/mm3 Absolute Neuts (auto) 4.8 (1.3-6.7) K/mm3 Absolute Nucleated RBC 0.000 (0.0-0.012) K/mm3 Nucleated RBC % 0.0 (0.0-0.2) % PT 13.0 (11.1-14.7) Seconds INR 0.9 APTT 25.9 (22.3-36.8) Seconds Sodium 139 (137-145) mmol/L Potassium 3.9 (3.4-5.0) mmol/L Chloride 107 (98-107) mmol/L Carbon Dioxide 29 (22-30) mmol/L Anion Gap 3 L (4-12) mmol/L BUN 14 (9-20) mg/dL Creatinine 1.10 (0.7-1.3) mg/dL Estim Creat Clear Calc 71 ml/min Estimated GFR > 60 (59 - ) Glucose 106 (65-110) mg/dL Calcium 9.6 (8.4-10.2) mg/dL Total Bilirubin 1.1 (0.2-1.3) mg/dL AST 22 (17-59) U/L ALT 20 (6-50) U/L Alkaline Phosphatase 79 (38-126) U/L Troponin I 0.012 0.013 (0.000-0.034) ng/mL Total Protein 7.0 (6.3-8.2) g/dL Albumin 4.4 (3.5-5.1) g/dL Lipase 60 (23-300) U/L <Lázaro Stauffer MD - Last Filed: 03/14/24 21:59> Imaging Data Attestation: I personally reviewed and interpreted this imaging study as follows: <Lázaro Stauffer MD - Last Filed: 03/14/24 21:59> My impression: Impressions Chest X-Ray 03/14/24 11:05 IMPRESSION: 1. No acute cardiopulmonary disease. Chest CTA 03/14/24 14:50 IMPRESSION: 1. No pulmonary embolism or other acute cardiopulmonary disease. <Lázaro Stauffer MD - Last Filed: 03/14/24 21:59> Discharge Plan Discharge Clinical Impression: Atypical chest pain, Left-sided chest wall pain <Shawanda Singh PA-C - Last Filed: 03/14/24 13:30> Patient Disposition: Home, Self-Care <Shawanda Singh PA-C - Last Filed: 03/14/24 13:30> Condition: Stable <Shawanda Singh PA-C - Last Filed: 03/14/24 13:30> Instructions: Antibiotic Form, Chest Pain (ED), Chest Wall Pain (ED) <Shawanda Singh PA-C - Last Filed: 03/14/24 13:30> Additional Instructions: your cardiac workup was reassuring here. You have a stock sorter appointment in May, if you have any recurrence of your chest pain, new symptoms such as difficulty in breathing, nausea, jaw pain or other concerns please seek re-evaluation otherwise please follow-up with your regular primary care provider and stock sorter outpatient. You did have a brief moment of irregular heartbeat that resolved, if this is persistent or you have any symptoms from it also seek evaluation with your PCP or return to the ER at that time. <Shawanda Singh PA-C - Last Filed: 03/14/24 13:30> Patient Language: [place] <Shawanda Singh PA-C - Last Filed: 03/14/24 13:30> Prescriptions: No Action psyllium husk 2.6 gram/4.1 gram powder 2 tbsp PO DAILY Rx Instructions: mix into at least 8 oz of water or juice before administering irbesartan-hydrochlorothiazide 300-12.5 mg tablet 1 tablet PO DAILY Qty: 90 1RF sertraline 50 mg tablet 50 mg PO DAILY Qty: 90 1RF alprazolam 1 mg tablet 1 mg PO DAILY PRN (Reason: anxiety) Qty: 10 0RF atorvastatin 20 mg tablet 20 mg PO HS <Shawanda Singh PA-C - Last Filed: 03/14/24 13:30> Follow-up/Referrals: Jude Murguia MD [Primary Care Provider] - <Shawanda Singh PA-C - Last Filed: 03/14/24 13:30> Time of Disposition: 16:28 <Shawanda Singh PA-C - Last Filed: 03/14/24 13:30> 16:28 <Lázaro Stauffer MD - Last Filed: 03/14/24 21:59>
--- NOTE | 2024-03-14 14:25 | ECG_ITS ---
Test Date: 2024-03-14 14:28:34 Measurements Intervals [place] Rate: 62 P: -5 HI: 166 QRS: 32 QRSD: 92 T: 47 QT: 434 QTc: 444 Interpretive Statements SINUS RHYTHM Compared to ECG 03/14/2024 10:13:09 Atrial fibrillation no longer present Left bundle-branch block no longer present Electronically Signed On 03-17-2024 15:06:54 CREDIT CARD SPECIALIST by Mitch Ramires M.D.
[2024-03-14 15:00] LABS: Troponin I 0.013 ng/mL (0.000-0.034)
== END 2024-03-14 16:58 | disposition home or self-care (01) ==
PROVIDERS: Physician Assistant; Emergency Provider Student in an Organized Health Care Education/Training Program; PCP Family Medicine
DX: R07.89 Other chest pain (principal); Z86.711 Personal history of pulmonary embolism; F32.A Depression, unspecified; I10 Essential (primary) hypertension; H91.93 Unspecified hearing loss, bilateral
CPT/HCPCS: 36415; 71046; 71275; 80053; 83690; 84484; 85025; 85610; 85730; 93005; 99284; Q9967

== ENCOUNTER 2024-07-17 09:46 | Outpatient (CLI) | payer MEDICARE, SELFPAY ==
--- NOTE | ~2024-07-17 | DEXA_ITS ---
Bone Density Report Name: HARIS FREEDMAN Age: 69 Sex: Male Ethnicity: White Date of : 1955 Indication: prior fracture; secondary osteoporosis; Referring Provider: JEAN POE Study: Bone densitometry was performed. Exam Date: July 17, 2024 Accession number: [id number] Bone Density: Region BMD T-score Z-score Classification AP Spine(L1-L4) 0.995 -0.9 0.0 Normal Femoral Neck (Left) 0.715 -1.6 -0.5 Osteopenia Total Hip (Left) 0.905 -0.8 -0.2 Normal World Health Organization criteria for BMD impression classify patients as: Normal (T-score at or above -1.0), Osteopenia (T-score between -1.0 and -2.5), or Osteoporosis (T-score at or below -2.5). 10-year Fracture Risk: FRAX not reported because: Prior hip or vertebral fracture Previous Exams: Region Exam Age BMD T-score BMD Change BMD Change Date g/cm2 vs Baseline vs Previous AP Spine (L1-L4) 07/17/2024 69 0.995 -0.9 -0.001 (-0.1%) -0.001 (-0.1%) 01/25/2021 65 0.997 -0.9 Total Hip(Left) 07/17/2024 69 0.905 -0.8 -0.011 (-1.2%) -0.011 (-1.2%) 01/25/2021 65 0.915 -0.8 *Denotes significance at 95% confidence level, LSC for AP Spine = 0.022 g/cm2, LSC for Total Hip = 0.027 g/cm2 Clinical Information Provided by Patient: Have had a previous hip or vertebral fracture Has had a low trauma fracture Has secondary osteoporosis Has used the following medications: Fosamax (i.e. alendronate), Vitamin D, Calcium Patient maximum height was 71 Does not regularly consume dairy products Drinks caffeinated beverages Impression: The patient has low bone mass, based on the Left Femoral Neck T-score. The patient has risk factors, including: previous fracture. No significant bone loss was observed. Discussion: INCREASED RISK OF FRACTURE DUE TO HISTORY OF LOW TRAUMA FRACTURE. The patient's previous fracture puts the patient at high risk of a future fracture. In untreated patients, the risk of osteoporotic fracture increases approximately two-fold for each 1.0 SD decrease in T-score. Low bone density is not the only risk factor for fracture; also consider factors such as patient's age, frailty or poor health, risk of falling, risk of injury, previous osteoporotic fracture, family history of osteoporosis, cigarette smoking, low body weight, etc. Not everyone with a low trauma fracture has osteoporosis; osteomalacia and other metabolic bone disorders should also be considered. Patients who have osteoporosis should be evaluated for specific diseases and conditions (secondary causes) that may cause or contribute to bone loss and fracture risk. National Osteoporosis Foundation (NOF) recommends pharmacologic intervention for patients with a prior low trauma hip or vertebral fracture regardless of BMD T-score. The patient should follow a healthful lifestyle (good nutrition with adequate calcium and vitamin D, and appropriate weight-bearing exercise). Follow-Up: Consider a repeat BMD and Vertebral Fracture Assessment (VFA) exam in 2 years or sooner if medically necessary, to reassess this patient's status. Reported by: ARACELY on 07/17/2024 10:17:00 AM. Reviewed, dictated and finalized at location [facility]an [facility]
--- OUTSIDE RECORDS SUMMARY | 2024-07-17 10:05 | XMS_ITS | Clinical Summary ---
Author Organization [facility] [employer] Address [address] [place] [address] Care Team Providers Care Supervisor Rework Name Role Phone Jude Murguia MD Primary Care Provider [phone] Leena Hurtado MD Unavailable [phone] Source Comments [facility] [employer],non-owned Affiliates and Associated Physician Practices is amultiple site organization consisting of ambulatory clinics and hospital sitesin [place], [place], [place] and [place]. This disclosure is being madepursuant to the Care Everywhere program and may not contain all information available regarding this patient. Last updated 17.[facility] [employer] Allergies No known active allergies Medications * Be aware that medications may not be up to date on this document. Alwaysverify current medications with the patient. irbesartan-hydr oCHLOROthiazide (Avalide) 300-12.5 MG tabletIndicatio ns:Hypertension Take 1 (one) tablet by mouth once daily Reasons: High Blood Pressure Active atorvastatin (Lipitor) 20 MG tabletIndicatio ns:Hyperlipidem ia Take 1 (one) tablet by mouth at bedtime Reasons: High Amount of Fats in the Blood Active sertraline (Zoloft) 50 MG tablet Take 1 (one) tablet by mouth once daily Active ALPRAZolam (Xanax) 1 MG tabletIndicatio ns:Anxiety Take 1 (one) tablet by mouth once daily as needed for Anxiety Reasons: Feeling Anxious Active Cannabinoids (THC FREE PO) Take 20 mg by mouth once daily PRN Active Active Problems Problem Noted Date Diagnosed Date Pulmonary embolism and infarction 04/15/2023 Encounters Date Type Department Care Team Description 05/26/2024 2:20 PM CDT Office Visit [facility] [address] [facility] [place] [id number] Krystian Castellanos MD Acute right-sided heart failure (Primary Dx); Essential hypertension; Dyslipidemia 05/26/2024 Travel from Last 3 Months Family History Medical History Relation Name Comments None Known Father None Known Mother Relation Name Status Comments Father Mother Social History Tobacco Use Types Packs/Day Years Used Date Smoking Tobacco: Former Cigarettes 2 19 1 976 - 1994 Smokeless Tobacco: Never Tobacco Cessation:Counseling Given: Not Answered Alcohol Use Standard Drinks/Week Comments Not Currently 0 (1 standard drink = 0.6 oz pur e alcohol) social AUDIT-C Answer Date Recorded Q1: How often do you have a drink containing alcohol? Never 04/17/2023 Q2: How many drinks containi ng alcohol do you have on a typical day when you are drinking? Patient does not drink Q3: How often do you have si x or more drinks on one occasion? Never 04/17/2023 Hunger Vital Sign Answer Date Recorded Within the past 12 months, y ou worried that your food would run out before you got the money to buy more. Never true 04/16/19 24 Within the past 12 months, t he food you bought just didn't last and you didn't have money to get more. 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 Gender Identity Not on file Sexual Orientation Not on file Last Filed Vital Signs Vital Sign Reading Time Taken Comments Blood Pressure 117/80 05/26/2024 3:05 PM CDT Pulse 64 05/26/2024 3:05 PM CDT Temperature 36.3 C (97.3 F) 08/14/2023 11:37 AM CDT Respiratory Rate 16 08/14/2023 11:37 AM CDT Oxygen Saturation 97% 08/14/2023 11:37 AM CDT room air Inhaled Oxygen Concentration - - Weight 107 kg (236 lb) 05/26/2024 3:05 PM CDT Height 180.3 cm (5' 10.98 ) 05/26/2024 3:05 PM C DT Body Mass Index 32.93 05/26/2024 3:05 PM CDT Plan of Treatment Upcoming Encounters Date Type Department Care Team (Late st Contact Info) Description 05/28/2025 1:50 PM CDT Office Visit [facility] [address] [facility], [facility] [address] [place] [address] [place] [id number] [facility] [address] [place] [address] Health Maintenance Due Date Last Done Comments COLOGUARD (AGES 45-75) - COLON CA SCREENING 1955 COLON MONITORING 1955 COLONOSCOPY - COLON CA SCREENING 1955 CT COLONOGRAPHY - COLON CA SCREENING 1955 Colorectal Cancer Screening 1955 FIT - COLON CA SCREENING 1955 FLEX SIG - COLON CA SCREENING 1955 MEDICARE AWV 12 MONTHS 1955 HEPATITIS C SCREENING 06/05/1974 DTAP/TDAP/TD VACCINES (1 - Tdap) 06/10/1975 PNEUMOCOCCAL VACCINE 50+ (1 of 1 - PCV) 2006 ZOSTER VACCINE (1 of 2) 2006 Respiratory Syncytial Virus (RSV) Vaccine Pt: or over 60 yrs (1 - Risk 60-74 years 1-dose series) 2016 AAA SCREENING 2021 COVID-19 VACCINE ( - season) 2023 DEPRESSION SCREENING 03/12/2024 INFLUENZA VACCINE (Season Ended) 2024 SCREENING FOR DIABETES 04/19/2026 4, 04/18/2023, 04/17/2023, Additional history exists HEPATITIS B VACCINE Aged Out No longe r eligible based on patient's age to complete this topic HIB VACCINE Aged Out No longer eligi ble based on patient's age to complete this topic HPV VACCINE Aged Out No longer eligi ble based on patient's age to complete this topic MENINGOCOCCAL (Group B) VACCINE SHARED DECISION-MAKING Aged Out No longer eligible based on patient's age to complete this topic MENINGOCOCCAL GROUPS A/C/Y/W VACCINE Aged Out No longer eligible based on patient's age to complete this topic Procedures Procedure Name Priority Date/Time Associated Diagnosis Comments RENAL FUNCTION PANEL AM Draw 04/19/2023 3:00 AM [employer]VENUE FIELD AUDITOR from Last 3 Months or Most Recently Relevant to Health Maintenance Results * (ABNORMAL) RENAL FUNCTION PANEL (04/19/2023 3:00 AM REVENUE FIELD AUDITOR) Glucose 116(H) 70 - 105 mg/dL 04/19/2023 3:[address] [facility] Sodium 137 136 - 145 mmol/L 04/19/2023 3:[address] [facility] Potassium 3.9 3.5 - 5.1 mmol/L 04/19/2023 3:[address] [facility] Chloride 102 98 - 107 mmol/L 04/19/2023 3:[address] [facility] CO2 25 22 - 29 mmol/L 04/19/2023 3:[address] [facility] Calcium 8.6 8.4 - 10.4 mg/dL 04/19/2023 3:[address] [facility] Anion Gap 10 6 - 16 mmol/L 04/19/2023 3:[address] [facility] BUN 13 7 - 26 mg/dL 04/19/2023 3:[address] [facility] Creatinine 1.03 0.72 - 1.25 mg/dL 04/19/2023 3:[address] [facility] Albumin 2.6(L) 3.4 - 5.0 gm/dL 04/19/2023 3:[address] [facility] Phosphorus 4.1 2.3 - 4.7 mg/dL 04/19/2023 3:[address] [facility] eGFR by CKD-EPI 80(L) >=90 mL/min/1.7 3 m2 04/19/2023 3:[address] 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 04/19/2023 3:09 AM REVENUE FIELD AUDITOR us Jaquelin Eden MD LAB - CHEMISTRY ORDER BUCK Final Result [facility] [address] [place] [address] from Last 3 Months or Most Recently Relevant to Health Maintenance Insurance MEDICARE [facility] Advance Directives * Full Code (Latest Code Status on File) Date Activated Date Inactivated Comments 04/18/2023 6:09 PM 04/20/2023 2:47 PM Care Teams Supervisor Rework Relationship Specialty Start Date End Date Jude Murguia MD [address] [place] [id number] PCP - General Family Medicine 04/16/23 Leena Hurtado MD [address] [place] [id number] Pulmonary Disease 05/29/23
== END 2024-07-17 09:47 | disposition home or self-care (01) ==
PROVIDERS: Visit Provider Family Medicine
DX: M81.0 Age-related osteoporosis without current pathological fracture (principal); M85.852 Other specified disorders of bone density and structure, left thigh
CPT/HCPCS: 77080